=== PATIENT | male | born 1990 | race Two or more races ===

== ENCOUNTER 2022-06-02 11:49 | Emergency (ER) | payer OTHER ==
[~2022-06-02] VITALS: Ht 182.9 cm; Wt 90.0 kg
[2022-06-02 11:52] VITALS: BP 140/89
[2022-06-02] MEDS ORDERED: dexamethasone sod phosphate 10mg/ml inj IM STA (13:27)
[2022-06-02] MEDS ORDERED: IBUP-1986 PO (14:28)
== END 2022-06-02 14:53 | disposition home or self-care (01) ==
LOC: ER 11:50
DX: M54.50 Low back pain, unspecified (principal); G89.29 Other chronic pain; Z79.899 Other long term (current) drug therapy; W19.XXXA Unspecified fall, initial encounter; Y93.89 Activity, other specified; Y92.89 Other specified places as the place of occurrence of the external cause; Y99.8 Other external cause status
CPT/HCPCS: 72131; 99284; J1100